=== PATIENT | female | born 1955 | race Caucasian/White ===

== ENCOUNTER 2025-08-29 10:23 | Emergency (ER) | payer OTHER ==
--- OUTSIDE RECORDS SUMMARY | 2025-08-29 10:27 | XMS REPORT | Continuity of Care Document ---
Author Name Unknown Address [address] [facility] [address] [place] [address] [facility] Address [address] [facility] [address] [place] [address] Care Team Providers Care Manager Urgent Care Name Role Phone Cameron Dempsey DO Primary Care Physician [phone] BENITO HARRISON Attending Clinician Unavailable JABIER JOSEPH Attending Clinician Unavailable RENALDO LUNDY Attending Clinician Unavailable [id number] Attending Clinician Unavailable [id number] Attending Clinician Unavailable MD JADIEL Attending Clinician Unavailab CRICKET Vaughan Attending Clinician Unav ailMARGOTH Moya Attending Clinician Unavailable EDNA UMAÑA Attending Clinician Unavailable FILEMON CARRERO Attending Clinician Unavaila ALEXEI Negro Attending Clinician Unavailable PINA PEARSON Attending Clinician Unavailab CHAR Murillo Attending Clinician Unava ilROSEANNA Gonsalves Attending Clinician Unava ilCAMERON Parra Attending Clinician UnavailChar Geronimo MD Attending Clinician [phone] Payers Payer Name Policy Type Policy Number Effective Date Expirati on Date Source [facility] [employer] [facility] 7 [id number] 2024 00:00:00 Problems Condition Name Condition Details Condition Category Status Onset Date Resolution Date Last Treatment Date Treating Clinician Comments Source Solar purpura Solar purpura Disease Active 02-23 00:00: 00 Poornima curm Encounter for screening mammogram for breast cancer Encounter for screening mammogram for breast cancer Disease Active 02-23 00:00: 00 Poornima crum History of pernicious anemia History of pernicious anemia Disease Active 02-23 00:00: 00 Poornima crum 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 Disease Active 03-02 00:00: 00 Poornima crum Peripheral vascular disease of extremity Peripheral vascular disease of extremity Disease Active 03-02 00:00: 00 Poornima crum COPD (chronic obstructiv e pulmonary disease) COPD (chronic obstructiv e pulmonary disease) Disease Active 02-23 00:00: 00 Poornima Danielsa radames Prediabete s - Unchanged Prediabete s - Unchanged Disease Active 02-10 00:00: 00 Poornima Danielsa radames Centrilobu lar emphysema Centrilobu lar emphysema Disease Active 01-09 00:00: 00 Poornima Danielsa radames Osteopenia Osteopenia Disease Active 12-25 00:00: 00 Poornima Danielsa radames Osteoarthr itis of lumbar spine Osteoarthr itis of lumbar spine Disease Active 07-09 00:00: 00 Poornima Danielsa radames Osteoarthr itis of lumbar spine Osteoarthr itis of lumbar spine Disease Active 07-09 00:00: 00 Poornima Danielsa radames Current smoker Current smoker Disease Active 06-13 00:00: 00 Poornima Danielsa radames HTN (hypertens ion) HTN (hypertens ion) Disease Active 05-10 00:00: 00 Poornima Danielsa radmaes Postmenopa usal Postmenopa usal Disease Active 05-10 00:00: 00 Poornima Rosen - Externa l Pernicious anemia-mon thly B12 Pernicious anemia-mon thly B12 Disease Active 05-10 00:00: 00 Poornima Rosen - Externa l HTN- benign HTN- benign Active Problem 01/23/2014 [facility] Group Problem Active 2014-01-23 01:45:28 Memoria radames Lennon Cataract Cataract Active Problem 01/23/2014 Medical Group Problem Active 2014-01-23 01:45:28 Memoria radames Lennon Vitamin D deficiency NOS Vitamin D deficiency NOS Active Problem 01/23/2014 Medical Group Problem Active 2014-01-23 01:45:28 Memoria radames Lennon Osteopenia Osteopenia Active Problem 01/23/2014 Medical Group Problem Active 2014-01-23 01:45:28 Memoria radames Lennon ANEMIA ANEMIA Active Problem 01/23/2014 Medical Group Problem Active 2014-01-23 01:45:28 Memoria radames Lennon Elevated BP w/o HTN Elevated BP w/o HTN Active Problem 01/23/2014 Medical Group Problem Active 2014-01-23 01:45:28 Memoria radames Lennon Vitamin B12 deficiency Vitamin B12 deficiency Active Problem 01/23/2014 Medical Group Problem Active 2014-01-23 01:45:28 Memoria radames Lennon Fatigue Fatigue Active Problem 01/23/2014 Medical Group Problem Active 2014-01-23 01:45:28 Memoria radames Lennon Tobacco use disorder Tobacco use disorder Active Problem 01/23/2014 Medical Group Problem Active 2014-01-23 01:45:28 [facility] rad[facility] [place] S/P removal of parathyroi d gland S/P removal of parathyroi d gland Disease Resolve d 11-27 00:00: 00 2023-03-02 00:00:00 2023-03-02 19:14:38 Poornima Selby Externa l Postproced ural hypoparath yroidism Postproced ural hypoparath yroidism Disease Resolve d 2 00:00: 00 2023-02-23 00:00:00 2023-02-23 12:49:55 Poornima Rosen - Externa l Hyperparat hyroidism Hyperparat hyroidism Disease Resolve d 1 00:00: 00 2023-02-23 00:00:00 2023-02-23 12:50:16 Poornima Rosen - Externa l Social History Social Habit Start Date Stop Date Quantity Comments Source Gender identity 2020-11-16 06:30:30 Identifies as female gender (finding) Poornima Rosen - External Sexual orientation 2020-11-16 06:30:30 Heterosexual (finding) Poornima Sheppardybold - External History SDOH Alcohol Frequency Poornima foster - External History SDOH Alcohol Std Drinks Poornima Sheppard ybold - External History SDOH Alcohol Binge Poornima Rosen - External ASSERTION Not Poornima Rosen - External History of Occupation Poornima Rosen - External History of tobacco use Cigarette Smoker Poornima reyes - External Alcoholic beverage intake 2025-04-27 00:00:00 2025-04-27 00:00:00 Current drinker of alcohol (finding) Poornima Rosen - External Tobacco use and exposure 2024-02-24 00:00:00 2024-02-24 00:00:00 Smokeless tobacco non-user Poornima Rosen - External Cigarettes smoked current (pack per day) - Reported 2024-02-24 00:00:00 2024-02-24 00:00:00 Poornima Rosen - External Cigarette pack-years 2024-02-24 00:00:00 2024-02-24 00:00:00 Poornima Rosen - External History of Social function 2023-08-02 00:00:00 2023-08-02 00:00:00 Poornima Rosen - External Alcohol intake 2023-04-28 00:00:00 2023-04-28 00:00:00 Current drinker of alcohol (finding) Poornima Rosen - External Alcohol Comment 2018-06-07 00:00:00 2018-06-07 00:00:00 socially Poornima Rosen - External Sex 2016-11-13 17:24:45 2016-11-13 17:24:45 Female (finding) Poornima Rosen - External TobaccoUse: 2013-11-28 00:00:00 2013-11-28 00:00:00 Norbert Lennon Sex assigned at 1955 00:00:00 1955 00:00:00 Tommy Altamirano Smoking Status Start Date Stop Date Source Smokes tobacco daily 2024-02-24 00:00:00 Poornima Altamirano Medications Ordered Medication Name Filled Medication Name Start Date Stop Date Current Medication? Ordering Clinician Indication Dosage Frequency Signature (SIG) Comments Components Source Tizanidine HCl 4 MG oral Tablet Tizanidine HCl 4 MG oral Tablet 2024-11 0 00:00: 00 Yes [id number] 4mg Q.25D Take 1 tablet (4 mg total) by mouth every 6 hours as needed for muscle spasms. Poornima crum Aspirin 81 MG oral Tablet Delayed Response Aspirin 81 MG oral Tablet Delayed Response 04-27 00:00: 00 Yes 81mg QD Take 1 tablet (81 mg total) by mouth daily. Poornima crum Rosuvastati n Calcium 5 MG oral Tablet Rosuvastati n Calcium 5 MG oral Tablet 04-27 00:00: 00 Yes 5mg QD Take 1 tablet (5 mg total) by mouth daily. Poornima crum Tdap (ADACEL) 5-2-15.5 LF-MCG/0.5 mL Intramuscul ar Suspension 02-01 10:27: 51 Yes [id number] .5mL Inject 0.5 mL into the muscle once for 1 dose Administer one. Poornima crum Amlodipine Besylate (NORVASC) 5 MG oral Tablet Amlodipine Besylate (NORVASC) 5 MG oral Tablet 02-01 00:00: 00 Yes [id number] 5mg QD Take 1 tablet (5 mg total) by mouth daily. Poornima crum Metoprolol Succinate 100 MG oral TABLET SR 24 HR Metoprolol Succinate 100 MG oral TABLET SR 24 HR 02-01 00:00: 00 Yes [id number] 100mg QD Take 1 tablet (100 mg total) by mouth daily. Poornima crum Albuterol HFA 108 (90 Base) MCG/ACT IN AERS Albuterol HFA 108 (90 Base) MCG/ACT IN AERS 02-01 00:00: 00 Yes [id number] 2{puff} Q.25D Inhale 2 puffs into the lungs every 6 hours as needed for wheezing. Poornima Rosen - Francesa radames Metoprolol Succinate 100 MG oral TABLET SR 24 HR 4-12 00:00: 00 02-01 00:00 :00 No [id number] 100mg QD Take 1 tablet (100 mg total) by mouth daily. Poornima Danielsa radames Amlodipine Besylate (NORVASC) 5 MG oral Tablet 4-12 00:00: 00 02-01 00:00 :00 No [id number] 5mg QD Take 1 tablet (5 mg total) by mouth daily. Poornima Rosen - Francesa radames Biotin 2500 MCG oral Cap 510 10:15: 43 03-24 00:00 :00 No Take by mouth Poornima Danielsa radames Biotin 2500 MCG oral Cap 0 - 10:12: 43 Yes Take by mouth Poornima crum Metoprolol Succinate 100 MG oral TABLET SR 24 HR 4- 00:00: 00 Yes [id number] 100mg Take 1 tablet (100 mg total) by mouth daily Poornima Danielsa radames Amlodipine Besylate (NORVASC) 5 MG oral Tablet 02-23 00:00: 00 Yes [id number] 5mg Take 1 tablet (5 mg total) by mouth daily Poornima Danielsa radames Metoprolol Succinate 100 MG oral TABLET SR 24 HR 1-26 00:00: 00 02-23 00:00 :00 No [id number] TAKE 1 TABLET(100 MG) BY MOUTH DAILY Poornima Danielsa radames Biotin 2500 MCG oral Cap 0 1-04 09:54: 22 Yes Take by mouth Poornima Rosen - Externa radames Amlodipine Besylate 5 MG oral Tablet 0 8- 00:00: 00 Yes [id number] 5mg Take 1 tablet (5 mg total) by mouth daily Poornima Rosen - Externa radames Biotin 2500 MCG oral Cap 0 3- 09:55: 29 Yes Take by mouth Poornima Rosen Metoprolol Succinate 100 MG oral TABLET SR 24 HR 0 3- 09:55: 15 02-10 00:00 :00 No 1{tbl} 1 tablet by other route daily Poornima Rosen Amlodipine Besylate 5 MG oral Tablet 2-16 00:00: 00 Yes [id number] TAKE 1 TABLET(5 MG) BY MOUTH DAILY Poornima Rosen Metoprolol Succinate 100 MG oral TABLET SR 24 HR 1- 00:00: 00 Yes [id number] TAKE 1 TABLET(100 MG) BY MOUTH DAILY Poornima Rosen Cetirizine 10 MG oral Tab 2019-11 0 00:00: 00 02-10 00:00 :00 No 1{tbl} Take 1 tablet by mouth as needed Poornima Rosen Aspirin 81 MG oral Tab 06-07 00:00: 00 03-24 00:00 :00 No [id number] 81mg Take 1 (one) tablet by mouth daily Poornima crum Metoprolol Succinate ER 3-11 01:45: 28 Yes Alma Ahumada TAKE 1 TABLET BY MOUTH EVERY DAY Kalpana Lennon Metoprolol Succinate ER 710 00:00: 00 Yes Alma Ahumada 1 tab(s) Kalpana Lennon Actonel 2 00:00: 00 Yes Alma Ahumada 1 tab(s) Kalpana Lennon Immunizations Ordered Immunization Name Filled Immunization Name Date Status Comments Source FLUAD TRIVALENT PF Influenza Vaccine, Adjuvanted, Preserve FLUAD TRIVALENT PF Influenza Vaccine, Adjuvanted, Preserve 2025-02-01 00:00:00 Completed Poornima Selby External COVID-19 Vaccine([employer])(12yr s+) COVID-19 Vaccine(Pfizer)(12yr s+) 2025-02-01 00:00:00 Completed Poornima Selby External Tdap- (Boostrix, Adacel) Tdap- (Boostrix, Adacel) 2025-02-01 00:00:00 Completed Poornima Selby External Influenza Virus Vaccine, High Dose, Age 65 And Up 2022-10-29 00:00:00 Completed Poornima Rosen - External Influenza Virus Vaccine, High Dose, Age 65 And Up 2022-10-29 00:00:00 Completed Poornima Seybold - External Influenza Virus Vaccine, High Dose, Age 65 And Up 2022-10-29 00:00:00 Completed Poornima Seybold - External Influenza Virus Vaccine, High Dose, Age 65 And Up Influenza Virus Vaccine, High Dose, Age 65 And Up 2022-10-29 00:00:00 Completed Poornima Seybold - External Influenza Virus Vaccine, High Dose, Age 65 And Up 2021-08-19 00:00:00 Completed Poornima Seybold - External Covid-19 Vaccine (Pfizer), Mrna-lnp, Dany Protein, Pf, 30mcg/0.3ml,IM 2021-08-19 00:00:00 Completed Poornima Seybold - External Influenza Virus Vaccine, High Dose, Age 65 And Up 2021-08-19 00:00:00 Completed Poornima Seybold - External Covid-19 Vaccine (Pfizer), Mrna-lnp, Dany Protein, Pf, 30mcg/0.3ml,IM 2021-08-19 00:00:00 Completed Poornima Seybold - External Influenza Virus Vaccine, High Dose, Age 65 And Up 2021-08-19 00:00:00 Completed Poornima Seybold - External Covid-19 Vaccine (Pfizer), Mrna-lnp, Dany Protein, Pf, 30mcg/0.3ml,IM 2021-08-19 00:00:00 Completed Poornima Seybold - External Influenza Virus Vaccine, High Dose, Age 65 And Up Influenza Virus Vaccine, High Dose, Age 65 And Up 2021-08-19 00:00:00 Completed Poornima Seybold - External Covid-19 Vaccine (Pfizer), Mrna-lnp, Dany Protein, Pf, 30mcg/0.3ml,IM Covid-19 Vaccine (Pfizer), Mrna-lnp, Dany Protein, Pf, 30mcg/0.3ml,IM 2021-08-19 00:00:00 Completed Poornima Seybold - External Influenza Virus Vaccine, High Dose, Age 65 And Up 2021-08-19 00:00:00 Completed Poornima Seybold Covid-19 Vaccine (Pfizer), Mrna-lnp, Dany Protein, Pf, 30mcg/0.3ml,IM 2021-08-19 00:00:00 Completed Poornima Seybold Influenza Virus Vaccine, High Dose, Age 65 And Up 2021-08-19 00:00:00 Completed Poornima Seybold - External Covid-19 Vaccine (Pfizer), Mrna-lnp, Dany Protein, Pf, 30mcg/0.3ml,IM 2021-08-19 00:00:00 Completed Poornima Seybold - External Covid-19 Vaccine (Pfizer), Mrna-lnp, Dany Protein, Pf, 30mcg/0.3ml,IM 2020-12-25 00:00:00 Completed Poornima Seybold - External Covid-19 Vaccine (Pfizer), Mrna-lnp, Dany Protein, Pf, 30mcg/0.3ml,IM 2020-12-25 00:00:00 Completed Poornima Seybold - External Covid-19 Vaccine (Pfizer), Mrna-lnp, Dany Protein, Pf, 30mcg/0.3ml,IM 2020-12-25 00:00:00 Completed Poornima Seybold - External Covid-19 Vaccine (Pfizer), Mrna-lnp, Dany Protein, Pf, 30mcg/0.3ml,IM Covid-19 Vaccine (Pfizer), Mrna-lnp, Dany Protein, Pf, 30mcg/0.3ml,IM 2020-12-25 00:00:00 Completed Poornima Seybold - External Covid-19 Vaccine (Pfizer), Mrna-lnp, Dany Protein, Pf, 30mcg/0.3ml,IM 2020-12-25 00:00:00 Completed Poornima Seybold Covid-19 Vaccine (Pfizer), Mrna-lnp, Dany Protein, Pf, 30mcg/0.3ml,IM 2020-12-25 00:00:00 Completed Poornima Seybold - External Influenza Virus Vaccine, No Preserv, age 6 months and up 2018-01-07 00:00:00 Completed Poornima Seybold - External Influenza Virus Vaccine, No Preserv, age 6 months and up 2018-01-07 00:00:00 Completed Poornima Seybold - External Influenza Virus Vaccine, No Preserv, age 6 months and up 2018-01-07 00:00:00 Completed Poornima Seybold - External Influenza Virus Vaccine, No Preserv, age 6 months and up Influenza Virus Vaccine, No Preserv, age 6 months and up 2018-01-07 00:00:00 Completed Poornima Seybold - External Influenza Virus Vaccine, No Preserv, age 6 months and up 2018-01-07 00:00:00 Completed Poornima Seybold Influenza Virus Vaccine, No Preserv, age 6 months and up 2018-01-07 00:00:00 Completed [facility] - External Tdap- (Boostrix, Adacel) 2014-05-10 00:00:00 Completed Poornima Seold - External Pneumococcal Vaccine, Polysaccharide 2014-05-10 00:00:00 Completed Poornima Seold - External Tdap- (Boostrix, Adacel) 2014-05-10 00:00:00 Completed Poornima Seybold - External Pneumococcal Vaccine, Polysaccharide 2014-05-10 00:00:00 Completed Poornima Seold - External Tdap- (Boostrix, Adacel) 2014-05-10 00:00:00 Completed Poornima Seybold - External Pneumococcal Vaccine, Polysaccharide Pneumococcal Vaccine, Polysaccharide 2014-05-10 00:00:00 Completed Poornima Seold - External Tdap- (Boostrix, Adacel) Tdap- (Boostrix, Adacel) 2014-05-10 00:00:00 Completed Poornima Seybold - External Pneumococcal Vaccine, Polysaccharide 2014-05-10 00:00:00 Completed Poornima Seybold Tdap- (Boostrix, Adacel) 2014-05-10 00:00:00 Completed Poornima Seybold Pneumococcal Vaccine, Polysaccharide 2014-05-10 00:00:00 Completed Poornima Seold - External Tdap- (Boostrix, Adacel) 2014-05-10 00:00:00 Completed Poornima Seold - External Pneumococcal Vaccine, Polysaccharide 2014-05-10 00:00:00 [facility], Pol[facility]accharide [facility]- (Boostrix, Adacel) Unknown Completed [facility] - External Influenza Virus Vaccine, No Preserv, age 6 months and up Unknown Completed [facility] - External Covid-19 Vaccine ([employer]), Mrna-lnp, Dany Protein, Pf, 30mcg/0.3ml,IM Unknown Completed Poornima Seybold - External Influenza Virus Vaccine, High Dose, Age 65 And Up Unknown Completed Poornima Seybold - External Pneumococcal Vaccine, Polysaccharide Unknown Completed Poornima Seybold - External Tdap- (Boostrix, Adacel) Unknown Completed Poornima Seybold - External Influenza Virus Vaccine, No Preserv, age 6 months and up Unknown Completed Poornima Seybold - External Covid-19 Vaccine ([facility]), Mrna-lnp, Dany Protein, Pf, 30mcg/0.3ml,IM Unknown Completed Poornima Seybold - External Influenza Virus Vaccine, High Dose, Age 65 And Up Unknown Completed Poornima Seybold - External Pneumococcal Vaccine, Polysaccharide Unknown Completed Poornima Seybold - External Tdap- (Boostrix, Adacel) Unknown Completed Poornima Seold - External Influenza Virus Vaccine, No Preserv, age 6 months and up Unknown Completed Poornima Seybold - External Covid-19 Vaccine ([employer]), Mrna-lnp, Dany Protein, Pf, 30mcg/0.3ml,IM Unknown Completed Poornima Seold - External Influenza Virus Vaccine, High Dose, Age 65 And Up Unknown Completed [facility] Seybold - External Pneumococcal Vaccine, Polysaccharide Unknown [facility] - [facility] Tdap- (Boostrix, Adacel) Unknown Com[facility] - External Influenza Virus Vaccine, No Preserv, age 6 months and up Unknown Completed [facility] - External Covid-19 Vaccine ([facility]), Mrna-lnp, Dany Protein, Pf, 30mcg/0.3ml,IM Unknown Completed Poornima Seold - External Influenza Virus Vaccine, High Dose, Age 65 And Up Unknown Completed [facility] - External Pneumococcal Vaccine, Polysaccharide Unknown Com[facility] - External Tdap- (Boostrix, Adacel) Unknown Completed [facility] Se[facility] - External Influenza Virus Vaccine, No Preserv, age 6 months and up Unknown Completed Poornima Seold - External Covid-19 Vaccine ([facility] [facility]), Mrna-lnp, Dany Protein, Pf, 30mcg/0.3ml,IM Unknown Completed Poornima Seybold - External Influenza Virus Vaccine, High Dose, Age 65 And Up Unknown Completed [facility] - External FLUAD TRIVALENT PF Influenza Vaccine, Adjuvanted, Preserve Unknown Completed Poornima Seold - External COVID-19 Vaccine(Pfizer)(12yr s+) Unknown Completed Poornima Seybold - External Vital Signs Vital Name Observation Time Observation Value Comments S ource Systolic blood pressure 2025-02-01 15:24:00 126 mm[Hg] Poornima Seybo ld - External Diastolic blood pressure 2025-02-01 15:24:00 68 mm[Hg] Poornima Sheppardybo ld - External Heart rate 2025-02-01 15:24:00 69 /min Kelse y Seybold - External Body temperature 2025-02-01 15:24:00 36.44 Mayte Poornima Seybold - External Respiratory rate 2025-02-01 15:24:00 16 /min Poornima Seybold - External Body height 2025-02-01 15:24:00 156.2 cm Lacie ey Seybold - External Body weight 2025-02-01 15:24:00 68.539 kg Lacie ey Seybold - External BMI 2025-02-01 15:24:00 28.09 kg/m2 Lacie ey Seybold - External Oxygen saturation in Arterial blood by Pulse oximetry 2025-02-01 15:24:00 96 /min Poornima Trayloro ld - External Body height 2025-01-15 15:57:00 156.2 cm Lacie ey Seybold - External Body weight 2025-01-15 15:57:00 69.582 kg Lacie ey Seybold - External BMI 2025-01-15 15:57:00 28.52 kg/m2 Lacie ey Seybold - External Systolic blood pressure 2024-09-01 15:56:00 161 mm[Hg] Poornima Seybo ld - External Diastolic blood pressure 2024-09-01 15:56:00 92 mm[Hg] Poornima Sheppardybo ld - External Heart rate 2024-09-01 15:56:00 53 /min Kelse y Seybold - External Body height 2024-09-01 15:56:00 157.5 cm Lacie ey Seybold - External Body weight 2024-09-01 15:56:00 70.67 kg Lacie ey Seybold - External BMI 2024-09-01 15:56:00 28.50 kg/m2 Lacie ey Seybold - External Systolic blood pressure 2024-02-24 15:07:00 122 mm[Hg] Poornima Seybo ld - External Diastolic blood pressure 2024-02-24 15:07:00 78 mm[Hg] Poornima Sheppardybo ld - External Heart rate 2024-02-24 15:07:00 57 /min Kelse y Seybold - External Body temperature 2024-02-24 15:07:00 36.5 Mayte Poornima Seybold - External Respiratory rate 2024-02-24 15:07:00 20 /min Poornima Seybold - External Body height 2024-02-24 15:07:00 156.2 cm Lacie ey Seybold - External Body weight 2024-02-24 15:07:00 70.308 kg Lacie ey Seybold - External BMI 2024-02-24 15:07:00 28.81 kg/m2 Lacie ey Seybold - External Oxygen saturation in Arterial blood by Pulse oximetry 2024-02-24 15:07:00 90 /min pt has COPD Poornima Sheppardybo ld - External Systolic blood pressure 2023-02-23 15:09:00 134 mm[Hg] Poornima Seybo ld - External Diastolic blood pressure 2023-02-23 15:09:00 80 mm[Hg] Poornima Sheppardybo ld - External Heart rate 2023-02-23 15:09:00 68 /min Kelse y Seybold - External Body temperature 2023-02-23 15:09:00 36.67 Mayte Poornima Seybold - External Respiratory rate 2023-02-23 15:09:00 15 /min Poornima Seybold - External Body height 2023-02-23 15:09:00 156.2 cm Lacie ey Seybold - External Body weight 2023-02-23 15:09:00 72.576 kg Lacie ey Seybold - External BMI 2023-02-23 15:09:00 29.74 kg/m2 Lacie ey Seybold - External Body height 2022-11-18 15:53:00 154.9 cm Lacie ey Seybold - External Body weight 2022-11-18 15:53:00 66.679 kg Lacie ey Seybold - External BMI 2022-11-18 15:53:00 27.78 kg/m2 Lacie ey Seybold - External Systolic blood pressure 2022-02-10 14:49:00 136 mm[Hg] Poornima Trayloro ld Diastolic blood pressure 2022-02-10 14:49:00 74 mm[Hg] Poornima Cardenas ld Heart rate 2022-02-10 14:49:00 89 /min Herbert Rosen Body temperature 2022-02-10 14:49:00 36.06 Mayte Poornima Rosen Respiratory rate 2022-02-10 14:49:00 16 /min Poornima Rosen Body height 2022-02-10 14:49:00 154.9 cm Lacie Rosen Body weight 2022-02-10 14:49:00 73.936 kg Lacie Rosen BMI 2022-02-10 14:49:00 30.80 kg/m2 Lacie Rosen Temperature Oral (F) 2013-11-28 16:30:00 97.8 F [facility] Weight 2013-11-28 16:30:00 [facility] [place] Height 2013-11-28 16:30:00 [facility] [place] Heart Rate 2013-11-28 16:30:00 [facility] Diastolic (mm Hg) 2013-11-28 16:30:00 [facility] Systolic (mm Hg) 2013-11-28 16:30:00 [facility] [place] Weight 2013-06-20 16:15:00 [facility] Height 2013-06-20 16:15:00 [facility] [place] Heart Rate 2013-06-20 16:15:00 [facility] Diastolic (mm Hg) 2013-06-20 16:15:00 [facility] Systolic (mm Hg) 2013-06-20 16:15:00 [facility] Temperature Oral (F) 2013-06-20 16:15:00 98.0 F [facility] Weight 2013-05-09 19:15:00 [facility] [place] Height 2013-05-09 19:15:00 [facility] Heart Rate 2013-05-09 19:15:00 [facility] Diastolic (mm Hg) 2013-05-09 19:15:00 [facility] [place] Systolic (mm Hg) 2013-05-09 19:15:00 [facility] [place] Temperature Oral (F) 2013-05-09 19:15:00 97.8 F [facility] [place] Procedures Procedure Date / Time Performed Performing Clinicia n Source QUANTAFLO 2023-02-23 16:03:15 Char Ventura i Poornima Sheppardybold - External Encounters Start Date/Time End Date/Time Encounter Type Admission Type Attending [facility] Care Department Encounter ID Source 2025-08-28 11:30:00 2025-08-28 11:30:00 Outpatient KWABENA BENITO POORNIMA WHITTAKER [id number] [facility] 2025-08-27 10:45:00 2025-08-27 10:45:00 Outpatient JOSEPHJABIER [id number] [facility] 2025-06-11 11:30:00 2025-06-11 11:30:00 Outpatient POORNIMA WHITTAKER [id number] [facility] 2025-06-11 10:30:00 2025-06-11 10:30:00 Outpatient POORNIMA WHITTAKER [id number] [facility] 2025-06-11 10:00:00 2025-06-11 10:00:00 Outpatient POORNIMA WHITTAKER [id number] [facility] 2025-06-11 09:00:00 2025-06-11 09:00:00 Outpatient POORNIMA WHITTAKER [id number] [facility] 2025-06-11 00:00:00 2025-06-11 00:00:00 Outpatient RENALDO LUNDY [id number] [facility] 2025-05-07 10:15:00 2025-05-07 10:15:00 Outpatient POORNIMA WHITTAKER [id number] [facility] 2025-05-03 15:30:00 2025-05-03 15:30:00 Outpatient POORNIMA WHITTAKER [id number] [facility] 2025-04-27 10:30:00 2025-04-27 10:30:00 Outpatient RENALDO LUNDY [id number] Poornima [facility] 2025-04-27 10:30:00 2025-04-27 10:30:00 Outpatient TRELidia7 POORNIMA WHITTAKER [id number] Poornima herson 2025-04-18 10:20:00 2025-04-18 10:20:00 Outpatient LAB90 POORNIMA WHITTAKER [id number] Poornima yberic 2025-04-11 00:00:00 2025-04-11 00:00:00 Outpatient MD POORNIMA BROOKS [id number] Poornima yberic 2025-03-30 09:10:00 2025-03-30 09:10:00 Outpatient MIGUELCRICKET [id number] Poornima yberic 2025-03-16 10:15:00 2025-03-16 10:15:00 Outpatient POORNIMA WHITTAKER [id number] Poornima yberic 2025-03-16 00:00:00 2025-03-16 00:00:00 Outpatient MARGOTH MORILLO [id number] Poornima eric 2025-03-16 00:00:00 2025-03-16 00:00:00 Outpatient MARGOTH MORILLO [id number] [facility] 2025-03-16 00:00:00 2025-03-16 00:00:00 Outpatient MD POORNIMA BROOKS [id number] Poornima eric 2025-03-05 00:00:00 2025-03-05 00:00:00 Outpatient MD POORNIMA BROOKS [id number] Poornima Rosen 2025-03-01 13:15:00 2025-03-01 13:15:00 Outpatient POORNIMA WHITTAKER [id number] Poornima Seyberic 2025-02-01 10:15:00 2025-02-01 10:15:00 Outpatient MARGOTH MORILLO [id number] Poornima Seyberic 2025-02-01 00:00:00 2025-02-01 00:00:00 Outpatient EDNA UMAÑA [id number] Poornima Sheppardyberic 2025-02-01 00:00:00 2025-02-01 00:00:00 Outpatient POORNIMA WHITTAKER [id number] Poornima Sheppardyberic 2025-01-31 00:00:00 2025-01-31 00:00:00 Outpatient EDNA UMAÑA POORNIMA WHITTAKER [id number] Poornima Seyberic 2025-01-26 08:00:00 2025-01-26 08:00:00 Outpatient FILEMON CARRERO POORNIMA WHITTAKER [id number] Poornima Seybold 2025-01-17 10:15:00 2025-01-17 10:15:00 Outpatient POORNIMA WHITTAKER [id number] [facility] 2025-01-15 10:00:00 2025-01-15 10:00:00 Outpatient FILEMON CARRERO POORNIMA WHITTAKER [id number] Po[facility]ima [facility] 2025-01-15 00:00:00 2025-01-15 00:00:00 Outpatient MD POORNIMA BROOKS [id number] [facility] 2025-01-03 00:00:00 2025-01-03 00:00:00 Outpatient JUAN RAMONGERARDO DEEDEERemyTERRELLEkta WHITTAKER [id number] Po[facility]ima [facility] 2024-10-05 10:00:00 2024-10-05 10:00:00 Outpatient POORNIMA WHITTAKER [id number] Poornima [facility] 2024-10-03 00:00:00 2024-10-03 00:00:00 Outpatient MD POORNIMA BROOKS [id number] Poorn[facility] 2024-10-02 13:20:00 2024-10-02 13:20:00 Outpatient POORNIMA WHITTAKER [id number] Po[facility] 2024-09-01 11:00:00 2024-09-01 11:00:00 Outpatient ALEXEI GARCIA [id number] Poornima Seybold 2024-09-01 10:35:00 2024-09-01 10:35:00 Outpatient POORNIMA WHITTAKER [id number] [facility] 2024-08-31 00:00:00 2024-08-31 00:00:00 Outpatient ALEXEI GARCIA [id number] Poornima Seybold 2024-08-10 16:00:00 2024-08-10 16:00:00 Outpatient POORNIMA WHITTAKER [id number] Po[facility]ima [facility] 2024-08-07 00:00:00 2024-08-07 00:00:00 Outpatient PINA PEARSON POORNIMA WHITTAKER [id number] Poornima Seybold 2024-02-24 10:50:00 2024-02-24 10:50:00 Outpatient LAB90 POORNIMA WHITTAKER [id number] Poornima Seybold 2024-02-24 10:00:00 2024-02-24 10:00:00 Outpatient PINA PEARSON POORNIMA WHITTAKER [id number] [facility] 2024-02-20 00:00:00 2024-02-20 00:00:00 Outpatient CHAR VENTURA [id number] Poornima Seybold 2024-01-20 00:00:00 2024-01-20 00:00:00 Outpatient POORNIMA WHITTAKER [id number] Poornima Seybold 2023-04-28 10:15:00 2023-04-28 10:15:00 Outpatient ROSEANNA MARLEY [id number] [facility] 2023-04-02 00:00:00 2023-04-02 00:00:00 Outpatient CHAR VENTURA [id number] Poornima Seybold 2023-04-01 10:30:00 2023-04-01 10:30:00 Outpatient POORNIMA WHITTAKER [id number] Poornima Seybold 2023-03-24 10:15:00 2023-03-24 10:15:00 Outpatient ROSEANNA MARLEY [id number] Poornima Seybold 2023-02-24 00:00:00 2023-02-24 00:00:00 Outpatient CHAR VENTURA [id number] Poornima Seybold 2023-02-23 11:15:00 2023-02-23 11:15:00 Outpatient LABJuwan POORNIMA WHITTAKER [id number] Poornima Seybold 2023-02-23 10:15:00 2023-02-23 10:15:00 Outpatient CHAR VENTURA [id number] Poornima Seybold 2023-02-23 00:00:00 2023-02-23 00:00:00 Outpatient POORNIMA WHITTAKER [id number] Poornima Shepparderic 2023-02-08 00:00:00 2023-02-08 00:00:00 Outpatient CHAR VENTURA POORNIMA WHITTAKER [id number] Poornima Shepparderic 2023-02-08 00:00:00 2023-02-08 00:00:00 Outpatient LORENZOCHAR DUMNOT POORNIMA WHITTAKER [id number] Poornima [facility] 2022-12-09 00:00:00 2022-12-09 00:00:00 Outpatient CAMERON DEMPSEY [id number] [facility]ornima [facility] 2022-11-18 10:00:00 2022-11-18 10:00:00 Outpatient JUAN RAMONGERARDO EDNA POORNIMA WHITTAKER [id number] Poornima [facility] 2022-02-12 09:15:00 2022-02-12 09:15:00 Outpatient LAB POORNIMA WHITTAKER [id number] Poornima [facility] 2022-02-10 10:00:00 2022-02-10 10:45:00 Office Visit Char Ventura [place] [id number] Poornima Shepparderic 2021-12-30 00:00:00 2021-12-30 00:00:00 Outpatient CAMERON DEMPSEY [id number] Poornima herson 2021-12-22 11:00:00 2021-12-22 11:00:00 Outpatient LORENZOCHAR POORNIMA WHITTAKER [id number] Poornima eric 2021-11-21 00:00:00 2021-11-21 00:00:00 Outpatient CAMERON DEMPSEY [id number] Poornima Rosen Results Test Description Test Time Test Comments Results Result Co mments Source Poornima Rosen - External Notes Date/Time Note Provider Source 2025-08-27 [facility]:52[facility] [id number] 10:52:22* Jabier Joseph, TRANSPORT RN-C - 08/27/2025 10:43 AM CDT Internal Medicine Nurse Practitioner Follow Up After Hours Video Visit Note Patient agrees to be evaluated and treated based on the presumptive diagnosis achieved through our video discussion via [employer]. Patient location: Home Date: August 27, 2025Time: 1043 AM Identified with two personal identifiers. Pina Sanchez is a 69 year old female who is seen for Muscle Spasm Problems discussed today: CC: Muscle Spasm HPI:Patient presents to with lower back pain x 3 days ago. Was washing her dogs. Has developed muscle spasms to the left lower back. Has been using alleve, tylenol to help with symptom management. Has not slept in 2 nights. Squatting, bending makes the left hip spasm. Has tried using stretches but no resolve. Still ambulatory, but difficult to get comfortable. Plan: -start tizandine 4 mg q 6 hour prn Social Determinants of Health:Financial Resources: Financial Resource Strain: Not on file Food Insecurity:Food Insecurity: Not on file Transportation Needs:Transportation Needs: Not on file Physical Activity:Physical Activity: Not on file Stress:Stress: Not on file Social Connections:Social Connections: Not on file Intimate Partner Violence:Intimate Partner Violence: Not on file Alcohol Use:Social History Substance and Sexual ActivityAlcohol Use Yes Comment: socially Tobacco Use:Tobacco Use History[1] Patient Active Problem ListDiagnosis HTN (hypertension) Postmenopausal Pernicious anemia-monthly B12 Current smoker Osteoarthritis of lumbar spine Osteopenia Centrilobular emphysema (multi HCC) Prediabetes - Unchanged COPD (chronic obstructive pulmonary disease) (multi HCC) 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-HCC) Peripheral vascular disease of extremity Solar purpura Well adult exam Encounter for screening mammogram for breast cancer History of pernicious anemia Current Medications[2]Past Medical History[3] Past Surgical History: Procedure Laterality Date BREAST IMPLANTS saline DENTAL IMPLANT INSERTION OF BILATERAL BREAST IMPLANTS 2016 removed old and replaced secondary to leakage from mammogram PARATHYROID GLAND REMOVAL 2014 PATELLA FRACTURE SURGERY left [place] TX ECTOPIC W/O SALPING&/OOPHORECTOMY age 30's left Tube & Ectopic Preg., Removal SHOULDER SURGERY 2012 left Family History[4]Social History[5] Immunization History Administered Date(s) Administered COVID-19 Vaccine([facility])(12yrs+) 02/01/2025 Covid-19 Vaccine ([employer]), Mrna-lnp, Dany Protein, Pf, 30mcg/0.3ml,IM 12/25/2020, 01/15/2021, 08/19/2021 FLUAD TRIVALENT PF Influenza Vaccine, Adjuvanted, Preserve 02/01/2025 Influenza Virus Vaccine, High Dose, Age 65 And Up 08/19/2021, 10/29/2022 Influenza Virus Vaccine, No Preserv, age 6 months and up 01/07/2018 Pneumococcal Vaccine, Polysaccharide 05/10/2014 Tdap- (Boostrix, Adacel) 05/10/2014, 02/01/2025 Review of SystemsConstitutional: Negative. HENT: Negative. Eyes: Negative. Respiratory: Negative. Cardiovascular: Negative. Gastrointestinal: Negative. Endocrine: Negative. Genitourinary: Negative. Musculoskeletal: Positive for back pain, gait problem and joint swelling. Skin: Negative. Allergic/Immunologic: Negative. Hematological: Negative. Psychiatric/Behavioral: Negative. Vitals:LMP (LMP Unknown) Physical ExamConstitutional: Appearance: Normal appearance. HENT: Head: Normocephalic and atraumatic. Pulmonary: Effort: Pulmonary effort is normal. Neurological: Mental Status: She is alert and oriented to person, place, and time. Psychiatric: Mood and Affect: Mood normal. Thought Content: Thought content normal. Judgment: Judgment normal. A/PProblem List Items Addressed This Visit None Visit Diagnoses Muscle spasm - Primary Relevant Medications Tizanidine HCl 4 MG oral Tablet I spent a total of 5 minutes today performing the following care related activities for [facility] Face to face exam/evaluationObtain/Review external records Philosophy Faculty Member/Educate Patient/Caregivers Pre-Charting/Documenting after the visit Interpreting/Ordering Meds, Tests, Procedures Upcoming appointments:Future Appointments Date Time Provider Department Center 08/27/2025 To Be Determined Jabier Joseph FNP-C [facility] 08/28/2025 11:30 AM Benito Harrison PA-C [facility] Patient understands limitations of telemedicine, given no physical examinationis conducted and verbalizes understanding of the same. Patient aware that clinical decisions will be based on history and somewhat limited visual/audio examination. Plan discussed with patient in detail and given ample time to ask questions. Questions answered to the best of my ability. Advise follow up if no improvement (call/send MKO and/or schedule in clinic appt if applicable). ER precautions also advised in the event of any worsening symptoms. Jabier Joseph, BEER MERCHANT, TRANSPORT RN-C, CWCNInternal Medicine/Internal Medicine After Hours [facility] Supervising VVN - Dr. John Rodriguez Supervising Internal Medicine MD - Dr. Essie Paul [1]Social History Tobacco Use Smoking Status Every Day Current packs/day: 1.00 Average packs/day: 1 pack/day for 45.0 years (45.0 ttl pk-yrs) Types: Cigarettes Smokeless Tobacco Never [2] Current Outpatient Medications Medication Sig Dispense Refill Tizanidine HCl 4 MG oral Tablet Take 1 tablet (4 mg total) by mouth every 6 hours as needed for muscle spasms. 30 tablet 0 Albuterol HFA 108 (90 Base) MCG/ACT IN AERS Inhale 2 puffs into the lungs every 6 hours as needed for wheezing. (Patient not taking: Reported on 04/27/2025.) 8.5 g 0 Amlodipine Besylate (NORVASC) 5 MG oral Tablet Take 1 tablet (5 mg total) by mouth daily. 90 tablet 3 Aspirin 81 MG oral Tablet Delayed Response Take 1 tablet (81 mg total) by mouth daily. 90 tablet 3 Metoprolol Succinate 100 MG oral TABLET SR 24 HR Take 1 tablet (100 mg total) by mouth daily. 90 tablet 3 Rosuvastatin Calcium 5 MG oral Tablet Take 1 tablet (5 mg total) by mouth daily. 90 tablet 3 No current facility-administered medications for this visit.[3] Past Medical History: Diagnosis Date COPD (chronic obstructive pulmonary disease) (multi HCC) HTN (hypertension) Hyperparathyroidism ([facility]-H[facility]) 11/15/2013 s/p adenoma removal Osteoarthritis of lumbar spine 07/09/2014 Osteoarthritis of lumbar spine Osteopenia age 60 last bone density. Prediabetes [4] Family History Problem Relation Name Age of Onset Coronary Arterial Disease Mother 80 Cancer Mother 60 breast Cancer Father stomach, at age 76/ from stomach cancer Cancer Sister 67 lymphoma/1/2 sister, in the liver when they found it Dementia Sister 57 had opiod dependence/alzheimer's Hypertension Neg Hx Heart Disease Mother dies of a heart attack Stroke Neg Hx Thyroid Disease Neg Hx Diabetes Mellitus Neg Hx [5] Social History Socioeconomic History Marital status: Occupational History Occupation: retired Tobacco Use Smoking status: Every Day Current packs/day: 1.00 Average packs/day: 1 pack/day for 45.0 years (45.0 ttl pk-yrs) Types: Cigarettes Smokeless tobacco: Never Vaping Use Vaping status: Never Used Substance and Sexual Activity Alcohol use: Yes Comment: socially Drug use: Never Sexual activity: Yes Partners: Male Comment: Social History Narrative Retired [facility]2025-10-13 10:52:22Upcoming Encounters Health Maintenance Due Date Last Done Comments COLONOSCOPY 1955 CT Colonography 1955 FIT Tests 1955 Sigmoidoscopy 1955 Zoster Vaccines (1 of 2) 2005 Pneumococcal Vaccine: 50+ Ye ars (2 of 2 - PCV) 05/10/2015 05/10/2014 RSV Vaccines (1 - Risk 60-74 years 1-dose series) 2015 Bone Density Scan 2020 Influenza Vaccines (#1) 2025 02/02/20 25, 10/29/2022, 08/19/2021, Additional history exists Physical Exam 02/01/2026 02/01/2025, 02/13, 02/23/2023, Additional history exists Lung Cancer Screening 03/16/2026 03/16/2025 , 04/01/2023, 12/12/2020, Additional history exists Creatinine Level (Kidney Fun ction Test) 04/18/2026 04/18/2025, 02/24/2024, 02/23/2023, Additional history exists Mammogram 10/02/2026 10/02/2024, 02/0 11/2016, 09/24/2015 Cologuard 03/12/2028 03/12/2025, 02/14, 02/23/2022, Additional history exists Colorectal Cancer Screening 03/12/2028 Tdap Vaccines 02/01/2035 02/01/2025, 05/10/2014 [place] [id number] 10:52:22 Diagnosis Muscle spasm - Primary Spasm of muscle [place] [id number] 10:52:22 [place] [id number] 10:27:55 Chief Complaint Patient presents with Physical HRA Complains of ankle pain every morning. T [facility]2025-03-03 09:58:22 Chief Complaint Patient presents with Consultation Shoulder Injury Pt c/o of constant rt shoulder pain, injured carrying a heavy case a year ago. 02/22 MITCH [facility]2024-10-18 10:58:00 Pina Sanchez is a 68 year old female Chief Complaint Patient presents with Shoulder Injury Right shoulder, Patient states had an injury approximately 9 months ago doing daily activities. MITCH Rae [facility]
[2025-08-29] MEDS ORDERED: KETOROLAC 30 MG/ML INJ ONE (12:05)
[2025-08-29] MEDS ORDERED: HYDROCODONE/APAP 5/325 MG TAB ONE (12:05)
[2025-08-29] MEDS ORDERED: DIAZEPAM 2 MG TABLET ONE (12:05)
--- NOTE | 2025-08-29 12:52 | ER ---
Nurse's Notes [facility] Name: Pina Sanchez Age: 69 yrs Sex: Female : 1955 Arrival Date: 08/29/2025 Time: 10:23 Bed 11 Private MD: Diagnosis: Sciatica, left side Presentation: 08/29 10:42 Chief complaint: Patient states: Low back pain since Wednesday. Shooting pain down L leg ll1 started Wednesday while shaving. Coronavirus screen: Client denies travel out of the [place] in the last 14 days. At this time, the client does not indicate any symptoms associated with coronavirus-19. Ebola Screen: Patient denies travel to an Ebola-affected area in the 21 days before illness onset. Initial Sepsis Screen: Does the patient meet any 2 criteria? No. Patient's initial sepsis screen is negative. Does the patient have a suspected source of infection? No. Patient's initial sepsis screen is negative. Risk Assessment: Do you want to hurt yourself or someone else? Patient reports no desire to harm self or others. Onset of symptoms was August 24, 2025. 10:42 Method Of Arrival: Ambulatory ll1 10:42 Acuity: STEVENSON 4 ll1 Triage Assessment: 10:04 General: Appears uncomfortable, Behavior is calm, cooperative, appropriate for age. ll1 Pain: Complains of pain in back Quality of pain is described as aching. Musculoskeletal: Circulation, motion, and sensation intact. Capillary refill < 3 seconds, in bilateral fingers. toes. Reports pain in back. Historical: - Allergies: 10:43 No Known Allergies; ll1 - PMHx: 10:43 Hypertensive disorder; ll1 - PSHx: 10:43 broken knee cap repair; ll1 - Immunization history:: Adult Immunizations up to date. - Infectious Disease History:: Denies. - Social history:: Smoking status: Patient reports the use of cigarette tobacco products, smokes one pack cigarettes per day. Screenin:52 [facility] ED Fall Risk Assessment (Adult) History of falling in the last 3 months, ll1 including since admission No falls in past 3 months (0 pts) Confusion or Disorientation No (0 pts) Intoxicated or Sedated No (0 pts) Impaired Gait No (0 pts) Mobility Assist Device Used No (0 pt) Altered Elimination No (0 pt) Score/Fall Risk Level 0 - 2 = Low Risk Maintained a safe environment, Hourly rounding (assess needs \T\ fall precautionary measures) done. Abuse screen: Denies threats or abuse. Nutritional screening: No deficits noted. Tuberculosis screening: No symptoms or risk factors identified. Assessment: 11:58 Reassessment: Patient and/or family updated on plan of care and expected duration. Pain ll1 level reassessed. 12:11 Reassessment: No changes from previously documented assessment. Patient and/or family ll1 updated on plan of care and expected duration. Pain level reassessed. Patient is alert, oriented x 3, equal unlabored respirations, skin warm/dry/pink. 12:52 Reassessment: No changes from previously documented assessment. Patient and/or family ll1 updated on plan of care and expected duration. Pain level reassessed. Patient is alert, oriented x 3, equal unlabored respirations, skin warm/dry/pink. Vital Signs: 10:42 BP 154 / 89; Pulse 83; Resp 17; Pulse Ox 97% ; Weight 69.85 kg; Height 5 ft. 1 in. ; ll1 Pain 10/10; 12:50 Temp 97.8; ll1 10:42 Body Mass Index 29.10 (69.85 kg, 154.94 cm) ll1 10:42 Pain Scale: Adult ll1 ED Course: 10:28 Patient arrived in ED. al6 10:28 Isabel Corona FNP-C [facility] kb 10:28 Db Tomas MD is Attending Physician. kb 10:43 Triage completed. ll1 10:43 Arm band placed on. ll1 10:43 Patient has correct armband on for positive identification. Provided Education on: ER ll1 procedures and process. 11:58 Patient placed in an exam room, on a stretcher. ll1 12:52 No provider procedures requiring assistance completed. Patient did not have IV access ll1 during this emergency room visit. Administered Medications: 12:11 Drug: HYDROcodone-acetaminophen PO 5 mg-325 mg 1 tabs PO once Route: PO; ll1 13:07 Follow up: Response: No adverse reaction; Pain is decreased; RASS: Alert and Calm (0) ll1 12:11 Drug: Diazepam PO 2 mg PO once Route: PO; ll1 13:08 Follow up: Response: No adverse reaction; Pain is decreased; RASS: Alert and Calm (0) 1 12:11 Drug: Dexamethasone IM 10 mg IM once Route: IM; Site: left gluteus; ll1 13:08 Follow up: Response: No adverse reaction ll1 12:11 Drug: Ketorolac IM 30 mg IM once Route: IM; Site: right gluteus; ll1 13:08 Follow up: Response: No adverse reaction; Pain is decreased ll1 Medication: 13:07 VIS not applicable for this client. 1 Outcome: 12:52 Discharge ordered by . kb 12:52 Discharged to home ambulatory, 1 12:52 Condition: stable 12:52 Discharge instructions given to patient, Instructed on discharge instructions, follow up and referral plans. medication usage, Demonstrated understanding of instructions, follow-up care, medications, Prescriptions given X 2, 13:08 Patient left the ED. 1 Signatures: Isabel Corona, JULIOC Delio Wise RN RN 1 Sangeeta Jay al6
--- NOTE | 2025-08-29 12:52 | EDPHYS ---
Physician Documentation [facility] Name: Pina Sanchez Age: 69 yrs Sex: Female : 1955 Arrival Date: 08/29/2025 Time: 10:23 Bed 11 Private MD: ED Physician Db Tomas HPI: 08/29 13:56 This 69 yrs old Female presents to ER via Ambulatory with complaints of Low Back Pain. kb 13:56 Patient is a 69-year-old female who presents for left low back/buttock pain that kb radiates down the leg that started 6 days ago. States the pain is not improving. Denies numbness or tingling. Denies bowel or bladder issues. Denies urinary symptoms. Denies injury or trauma.. Historical: - Allergies: 10:43 No Known Allergies; ll1 - PMHx: 10:43 Hypertensive disorder; ll1 - PSHx: 10:43 broken knee cap repair; ll1 - Immunization history:: Adult Immunizations up to date. - Infectious Disease History:: Denies. - Social history:: Smoking status: Patient reports the use of cigarette tobacco products, smokes one pack cigarettes per day. ROS: 13:54 Constitutional: As per HPI kb Exam: 13:54 Constitutional: This is a well developed, well nourished patient who is awake, alert, kb and in no acute distress. Head/Face: Normocephalic, atraumatic. ENT: Moist Mucous membranes Respiratory: Respirations even and unlabored. No increased work of breathing. Talking in full sentences Skin: Warm, dry with normal turgor. Normal color. MS/ Extremity: Pulses equal, no cyanosis. Neurovascular intact. Full, normal range of motion. Neuro: Awake and alert, GCS 15, oriented to person, place, time, and situation. 13:54 Back: pain, that is moderate, of the left low back, ROM is painful, normal spinal alignment noted, CVA tenderness, is absent, vertebral tenderness, is not appreciated, Vital Signs: 10:42 BP 154 / 89; Pulse 83; Resp 17; Pulse Ox 97% ; Weight 69.85 kg; Height 5 ft. 1 in. ; ll1 Pain 10/10; 12:50 Temp 97.8; ll1 10:42 Body Mass Index 29.10 (69.85 kg, 154.94 cm) ll1 10:42 Pain Scale: Adult ll1 MDM: 10:28 Medical Screening Exam initiated kb 13:55 Differential diagnosis: arthritis, strain, fracture, sciatica, Herniated disc. Data kb reviewed: vital signs, nurses notes. Test considered but Not performed: Labs: UA considered but patient has no urinary symptoms, no CVA tenderness. X-ray: X-ray considered but patient denies any injury or trauma. Historians other than the Patient: Spouse/Significant Other: . Counseling: I had a detailed discussion with the patient and/or guardian regarding the historical points, exam findings, and any diagnostic results supporting the discharge/admit diagnosis, the need for outpatient follow up, a family practitioner, to return to the emergency department if symptoms worsen or persist or if there are any questions or concerns that arise at home. ED course: Pain greatly improved after treatment. Patient ready to go home. Administered Medications: 12:11 Drug: HYDROcodone-acetaminophen PO 5 mg-325 mg 1 tabs PO once Route: PO; ll1 13:07 Follow up: Response: No adverse reaction; Pain is decreased; RASS: Alert and Calm (0) ll1 12:11 Drug: Diazepam PO 2 mg PO once Route: PO; ll1 13:08 Follow up: Response: No adverse reaction; Pain is decreased; RASS: Alert and Calm (0) ll1 12:11 Drug: Dexamethasone IM 10 mg IM once Route: IM; Site: left gluteus; ll1 13:08 Follow up: Response: No adverse reaction ll1 12:11 Drug: Ketorolac IM 30 mg IM once Route: IM; Site: right gluteus; ll1 13:08 Follow up: Response: No adverse reaction; Pain is decreased ll1 Disposition: 08/30 07:33 Co-signature as Attending Physician, Db Tomas MD I agree with the assessment and adriana plan of care. Disposition Summary: 08/29/25 12:52 Discharge Ordered Notes: Location: Home Condition: Stable kb Diagnosis - Sciatica, left side kb Followup: kb - With: Emergency Department - When: As needed - Reason: Worsening of condition Followup: kb - With: Private Physician - When: 2 - 3 days - Reason: Recheck today's complaints, Continuance of care, Re-evaluation by your physician Discharge Instructions: - Discharge Summary Sheet kb - Sciatica, [id number] kb - Back Exercises, [id number] kb Forms: - Medication Reconciliation Form kb - Antibiotic Education kb - Prescription Opioid Use kb - Patient Portal Instructions kb - Leadership Thank You Letter kb Prescriptions: - Prednisone 20 mg Oral Tablet - take 1 tablet ORAL route once daily for 5 days; 5 tablet; Refills: 0, Product kb Selection Permitted - Diclofenac Sodium 75 mg Oral tablet, delayed release (enteric coated) - take 1 tablet ORAL route 2 times per day As needed; 30 tablet; Refills: 0, kb Product Selection Permitted Signatures: Isabel Corona, ICING COATER-C ICING COATER-Db Tian MD MD cha Lewis, Lynsay RN RN ll1
[2025-08-29 13:18] VITALS: BP 154/89; O2SAT 97
[2025-08-29 13:19] VITALS: TEMP 97.8
== END 2025-08-29 13:08 | disposition home or self-care (01) ==
LOC: ER 10:23
DX: M54.32 Sciatica, left side (principal); F17.210 Nicotine dependence, cigarettes, uncomplicated
CPT/HCPCS: 96372; 99284; J1885; J1100